=== PATIENT | male | born 1965 | race Caucasian/White ===

== ENCOUNTER 2017-09-30 21:45 | Inpatient (IN) | payer MEDICARE, OTHER ==
[2017-09-30] MEDS ORDERED: Sodium Chloride 0.9% 1,000 ML IV ONE (22:31)
[2017-09-30] MEDS ORDERED: (Novolin R) Insulin Human Regular 100 units/ml vial IV ONE ×2 (22:32→23:36)
--- NOTE | 2017-09-30 22:33 | C.PDOC ---
History Of Present Illness <Tara Kuo - Last Filed: 10/01/17 01:19> <Sasha Rooney - Last Filed: 10/01/17 02:16> Pt is a 51 yo with known hx NIDDM.who states has had increasing thirst,frequent urination and gen wkns for past few days.Pt is legally blind due to diabetic retinopathy.Denies any nausea,vomiting or recent fevers (Tara Kuo) <Tara Kuo - Last Filed: 10/01/17 01:19> <Sasha Rooney - Last Filed: 10/01/17 02:16> Time Seen by Provider: 09/30/17 22:31 Chief Complaint (Nursing): High Blood Sugar Past Medical History - Medical History PMH: Arthritis, Back Problems, Diabetes, Gastritis, HTN Denies: Hepatitis, HIV, Chronic Kidney Disease, Seizures, Sexually Transmitted Disease - Social History Hx Tobacco Use: No Hx Alcohol Use: Yes (stopped drinking alcohol aug 24) Hx Substance Use: No - Immunization History Hx Tetanus Toxoid Vaccination: No Hx Influenza Vaccination: Yes Hx Pneumococcal Vaccination: Yes <Tara Kuo - Last Filed: 10/01/17 01:19> Reviewed: Historical Data, Nursing Documentation, Vital Signs Family History: States: No Known Family Hx <Sasha Rooney - Last Filed: 10/01/17 02:16> Vital Signs: Last Vital Signs Temp 98 F 09/30/17 21:59 Pulse 98 H 09/30/17 21:59 Resp 18 09/30/17 21:59 BP 157/90 H 09/30/17 21:59 Pulse Ox 100 10/01/17 01:20 - [facility] Procedures ALCOHOL DETOXIFICATION (03/26/13) CLOSED ENDOSCOPIC BIOPSY OF LARGE INTESTINE (02/20/14) OTHER GROUP THERAPY (03/26/13) ED Course And Treatment - Laboratory Results Result Diagrams: 09/30/17 22:42 09/30/17 22:42 ECG: Interpreted By Me ECG Rhythm: Sinus Tachycardia ECG Interpretation: Abnormal Interpretation Of ECG: sinus tach,q's in 3,avf.otherwise neg O2 Sat by Pulse Oximetry: 100 <Tara Kuo - Last Filed: 10/01/17 01:19> - Laboratory Results Result Diagrams: 09/30/17 22:42 10/01/17 00:57 Pulse Ox Interpretation: Normal <Sasha Rooney - Last Filed: 10/01/17 02:16> Critical Care Time - Critical Care Note Total Time (in mins): 30 Documented critical care: time excludes all time spent performing seperately billable procedures. <Sasha Rooney - Last Filed: 10/01/17 02:16> Disposition <Tara Kuo - Last Filed: 10/01/17 01:19> Discussed With Dr.: Gopal To Comment: accetped the pt on his service and took over the care at 2:13 AM Doctor Will See Patient In The: ED Counseled Patient/Family Regarding: Studies Performed, Diagnosis - Disposition Disposition Time: 02:13 <Sasha Rooney - Last Filed: 10/01/17 02:16> - Disposition Referrals: Non [facility] Provider, [Primary Care Provider] - Disposition: HOSPITALIZED Condition: FAIR Forms: [facility] (Greenlandic) - Clinical Impression Clinical Impression: Diabetic complication, Hyperglycemia Decision To Admit <Tara Kuo - Last Filed: 10/01/17 01:19> - Pt Status Changed To: Hospital Disposition Of: Observation - . Bed Request Type: Regular Admitting Physician: Gopal To <Sasha Rooney - Last Filed: 10/01/17 02:16> - . Patient Diagnosis: Diabetic complication, Hyperglycemia
[2017-09-30 22:45] LABS: BASO % 0.2 % (0.0-2.0); EOS # 0.8 K/uL (0.0-0.7); EOS % 6.5 % (0.0-4.0); HEMOGLOBIN 12.5 g/dL (12.0-18.0); LYMPH # 1.7 K/uL (1.0-4.3); LYMPH % 13.7 % (20.0-40.0); MEAN CORPUSCULAR HEMOGLOBIN 31.6 pg (27.0-31.0); MEAN CORPUSCULAR HGB CONC 33.9 g/dL (33.0-37.0); MEAN PLATELET VOLUME 9.9 fL (7.2-11.7); MONO # 0.6 K/uL (0.0-0.8); MONO % 4.8 % (0.0-10.0); NEUT # 9.4 K/uL (1.8-7.0); NEUT % 74.8 % (50.0-75.0); NRBC % 0.1 % (0.0-2.0); RBC 3.95 Mil/uL (4.40-5.90); RED CELL DISTRIBUTION WIDTH 13.7 % (11.5-14.5); WHITE BLOOD COUNT 12.6 K/uL (4.8-10.8)
[2017-09-30 22:47] LABS: MEAN CELL VOLUME 93.2 fL (80.0-94.0)
[2017-09-30] MEDS ORDERED: (Novolin R) Insulin Human Regular 100 units/ml vial ONE ×2 (22:49→23:43)
[2017-09-30] MEDS ORDERED: Sodium Chloride 0.9% 1,000 ML ONE (22:50)
[2017-09-30 22:59] LABS: ALB/GLOB RATIO 1.1 (1.0-2.1); ALBUMIN 4.2 g/dL (3.5-5.0); ALT/SGPT 19 U/L (21-72); AST/SGOT 14 U/L (17-59); BLOOD UREA NITROGEN 24 mg/dL (9-20); GFR AFRICAN-AMERICAN > 60; GFR NON-AFRICAN AMERICAN > 60; LIPASE 284 U/L (23-300)
[2017-10-01 00:11] LABS: ABG ALLEN TEST POS; ARTERIAL BLOOD GAS HEMOGLOBIN 11.8 g/dL (11.7-17.4); ARTERIAL BLOOD GAS O2 SAT 98.7 % (95-98); ARTERIAL BLOOD GAS PCO2 33 mm/Hg (35-45); ARTERIAL BLOOD GAS PO2 91 mm/Hg (80-100); ARTERIAL BLOOD GAS TCO2 21.4 mmol/L (22-28)
[2017-10-01] MEDS ORDERED: Insulin Human Regular 100 UNIT in Sodium Chloride 0.9% 99 ML IV SCH (00:45)
[2017-10-01 01:36] LABS: BLOOD UREA NITROGEN 21 mg/dL (9-20); CALCIUM 9.4 mg/dl (8.6-10.4); GFR AFRICAN-AMERICAN > 60; GFR NON-AFRICAN AMERICAN > 60
--- NOTE | 2017-10-01 02:56 | CP.PCM.HP ---
<MarlaPietro R - Last Filed: 10/01/17 03:21> History of Present Illness - History of Present Illness History of Present Illness: CC: "My sugar was in the 600s" HPI: Mr Lee is a 51 year old male with a PMHx of uncontrolled diabetes, diabetic retinopathy with bilateral legal blindness, herniated lumbar disc, HTN, who presents to [facility] [place] [facility] because of 2 days of increased thirst and urinary frequency. He also endorsed dizziness. He denies dysuria, focal defecits , N/V, fever/chills. This is his 4th or 5th admission for elevated sugar/DKA. Yesterday evening he checked his blood glucose and found it to be in the 600s. He stated that he hasn't been eating healthy the past few days and this might have contributed to the high glucose. He lives in [place], [place] and is visiting his brother in . He sees a PMD in [place] (Dr Cárdenas?) and last saw him last week. 1 month ago he was admitted in [facility] for urinary retention. 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; ambulates with cane Present on Admission - Present on Admission Any Indicators Present on Admission: No Review of Systems - Constitutional Constitutional: absent: Chills, Fatigue, Fever, Headache, Lethargy - EENT Eyes: Blind Spots, Blurred Vision Ears: absent: Decreased Hearing Additional comments: legally blind - Cardiovascular Cardiovascular: absent: Chest Pain, Chest Pain at Rest, Diaphoresis, Dyspnea on Exertion, Lightheadedness, Paroxysmal Nocturnal Dyspnea, Rapid Heart Rate, Syncope - Respiratory Respiratory: absent: Cough, Dyspnea, Dyspnea on Exertion, Wheezing, Stridor - Gastrointestinal Gastrointestinal: absent: Abdominal Pain, Bloating, Constipation, Diarrhea - Genitourinary Genitourinary: Urinary Frequency. absent: Dysuria - Neurological Neurological: Dizziness, Weakness Past Patient History - Infectious Disease Hx of Infectious Diseases: None - Past Medical History & Family History Past Medical History?: Yes - Past Social History Smoking Status: Former Smoker - CARDIAC Hx Hypertension: Yes - PULMONARY Hx Respiratory Disorders: No Hx Tuberculosis: No - NEUROLOGICAL Hx Seizures: No - HEENT Hx HEENT Problems: Yes Other/Comment: retinal problem ?Legally Blind for x 5 years no eyeglasses - RENAL Hx Chronic Kidney Disease: No - ENDOCRINE/METABOLIC Hx Endocrine Disorders: Yes Hx Diabetes Mellitus Type 2: Yes Other/Comment: On insulin @ home dc'd insulin 4 yrs ago - HEMATOLOGICAL/ONCOLOGICAL Hx Human Immunodeficiency Virus (HIV): No - INTEGUMENTARY Hx Dermatological Problems: No - MUSCULOSKELETAL/RHEUMATOLOGICAL Hx Arthritis: Yes - GASTROINTESTINAL Hx Gastritis: Yes - GENITOURINARY/GYNECOLOGICAL Hx Sexually Transmitted Disorders: No - PSYCHIATRIC Hx Substance Use: No - SURGICAL HISTORY Hx Surgeries: Yes Other/Comment: HX Hemorrhoidectomy - ANESTHESIA Hx Anesthesia: Yes Hx Anesthesia Reactions: No Hx Malignant Hyperthermia: No Meds Allergies/Adverse Reactions: Allergies Allergy/AdvReac Type Severity Reaction Status Date / Time No Known Allergies Allergy Verified 09/30/17 21:56 Physical Exam - Constitutional Appears: Well, Non-toxic, No Acute Distress - Head Exam Head Exam: ATRAUMATIC, NORMAL INSPECTION - Eye Exam Eye Exam: EOMI Pupil Exam: PERRL Additional comments: Legally blind - can make out shapes and colors up close - ENT Exam ENT Exam: Mucous Membranes Moist - Neck Exam Neck exam: Positive for: Normal Inspection. Negative for: Lymphadenopathy, Tenderness - Respiratory Exam Respiratory Exam: Clear to Auscultation Bilateral, NORMAL BREATHING PATTERN. absent: Accessory Muscle Use, Rales, Rhonchi, Wheezes, Stridor - Cardiovascular Exam Cardiovascular Exam: REGULAR RHYTHM, +S1, +S2. absent: Bradycardia, Tachycardia , JVD, Systolic Murmur - GI/Abdominal Exam GI & Abdominal Exam: Normal Bowel Sounds, Soft. absent: Distended, Firm, Guarding, Rebound, Rigid, Tenderness - Extremities Exam Extremities exam: Positive for: full ROM, normal capillary refill, normal inspection, pedal pulses present. Negative for: pedal edema, tenderness - Back Exam Back exam: NORMAL INSPECTION. absent: CVA tenderness (L), CVA tenderness (R), rash noted - Neurological Exam Neurological exam: Alert, CN II-XII Intact, Oriented x3 - Psychiatric Exam Psychiatric exam: Normal Affect, Normal Mood - Skin Skin Exam: Intact, Normal Color, Warm Results - Vital Signs Recent Vital Signs: Last Vital Signs Temp 97.8 F 10/01/17 02:38 Pulse 98 H 10/01/17 02:38 Resp 16 10/01/17 02:38 BP 151/83 H 10/01/17 02:38 Pulse Ox 97 10/01/17 02:38 - Labs Result Diagrams: 09/30/17 22:42 10/01/17 00:57 Labs: Laboratory Results - last 24 hr 09/30/17 09/30/17 09/30/17 22:42 22:42 23:51 WBC 12.6 H RBC 3.95 L Hgb 12.5 Hct 36.9 MCV 93.2 D MCH 31.6 H MCHC 33.9 RDW 13.7 Plt Count 252 MPV 9.9 Neut % (Auto) 74.8 Lymph % (Auto) 13.7 L [place]upe % (Auto) 4.8 Eos % (Auto) 6.5 H Baso % (Auto) 0.2 Neut # (Auto) 9.4 H Lymph # (Auto) 1.7 [place] # (Auto) 0.6 Eos # (Auto) 0.8 H Baso # (Auto) 0.0 Puncture Site Rr pCO2 33 L pO2 91 HCO3 22.0 ABG pH 7.40 ABG Total CO2 21.4 L ABG O2 Saturation 98.7 H ABG Base Excess -3.7 L ABG Hemoglobin 11.8 ABG Carboxyhemoglobin 1.9 H POC ABG HHb (Measured) 1.3 ABG Methemoglobin 1.5 Drew Test Pos A-a O2 Difference 17.0 Respiratory Index 0.2 Hgb O2 Saturation 95.2 Liter Flow 0 FiO2 21.0 Sodium 124 L Potassium 5.1 Chloride 86 L Carbon Dioxide 19 L Anion Gap 24 H BUN 24 H Creatinine 1.1 Est GFR ( Amer) > 60 Est GFR (Non-Af Amer) > 60 POC Glucose (mg/dL) Random Glucose 829 H* D Calcium 10.0 Total Bilirubin 0.8 AST 14 L ALT 19 L D Alkaline Phosphatase 123 Troponin I < 0.0120 Total Protein 8.0 Albumin 4.2 Globulin 3.8 Albumin/Globulin Ratio 1.1 Lipase 284 Serum Ketones Small 10/01/17 10/01/17 00:40 00:57 WBC RBC Hgb Hct MCV MCH MCHC RDW Plt Count MPV Neut % (Auto) Lymph % (Auto) [place]upe % (Auto) Eos % (Auto) Baso % (Auto) Neut # (Auto) Lymph # (Auto) [place] # (Auto) Eos # (Auto) Baso # (Auto) Puncture Site pCO2 pO2 HCO3 ABG pH ABG Total CO2 ABG O2 Saturation ABG Base Excess ABG Hemoglobin ABG Carboxyhemoglobin POC ABG HHb (Measured) ABG Methemoglobin Drew Test A-a O2 Difference Respiratory Index Hgb O2 Saturation Liter Flow FiO2 Sodium 131 L Potassium 3.9 Chloride 96 L Carbon Dioxide 20 L Anion Gap 19 BUN 21 H Creatinine 0.9 Est GFR ( Amer) > 60 Est GFR (Non-Af Amer) > 60 POC Glucose (mg/dL) 343 H Random Glucose 353 H Calcium 9.4 Total Bilirubin AST ALT Alkaline Phosphatase Troponin I Total Protein Albumin Globulin Albumin/Globulin Ratio Lipase Serum Ketones Assessment & Plan (1) Uncontrolled diabetes mellitus Assessment and Plan: On admission glucose 829 * metabolic acidosis corrected quickly and no serum ketones - thus NOT DKA In ED given Novolin 10u x2 and NS 1L bolus * glucose improved to 353 [facility] Intern consult, Dr Essie Duffy * Patient's DM home med includes only metformin 500mg PO QD EKG read by ER physician showed Q-waves in V3 and AVF otherwise NEGATIVE Diabetic Diet Cont home med Metformin 500mg PO QD NS @ 125cc/hr Accuchecks ACHS Insulin sliding scale - medium dose Hypoglycemia protocol Diabetic Education F/U HgbA1C Status: Acute (2) Hypertension Assessment and Plan: BP elevated Cont home med Metoprolol Succinate 50mg PO QD Monitor Status: Acute (3) Diabetic retinopathy Assessment and Plan: Patient with homemaker at home Cont home med metformin 500mg PO QD Status: Acute (4) Prophylactic measure Assessment and Plan: SCDs, Heparin 5000u SC Q8 Protonix 40mg PO QD Diabetic Diet Status: Acute <Gopal To - Last Filed: 10/01/17 06:25> Results - Vital Signs Recent Vital Signs: Last Vital Signs Temp 97.7 F 10/01/17 03:10 Pulse 100 H 10/01/17 03:10 Resp 20 10/01/17 03:10 BP 122/83 10/01/17 03:10 Pulse Ox 98 10/01/17 03:10 - Labs Result Diagrams: 09/30/17 22:42 10/01/17 00:57 Labs: Laboratory Results - last 24 hr 09/30/17 09/30/17 09/30/17 22:42 22:42 23:51 WBC 12.6 H RBC 3.95 L Hgb 12.5 Hct 36.9 MCV 93.2 D MCH 31.6 H MCHC 33.9 RDW 13.7 Plt Count 252 MPV 9.9 Neut % (Auto) 74.8 Lymph % (Auto) 13.7 L [place] % (Auto) 4.8 Eos % (Auto) 6.5 H Baso % (Auto) 0.2 Neut # (Auto) 9.4 H Lymph # (Auto) 1.7 [place] # (Auto) 0.6 Eos # (Auto) 0.8 H Baso # (Auto) 0.0 Puncture Site Rr pCO2 33 L pO2 91 HCO3 22.0 ABG pH 7.40 ABG Total CO2 21.4 L ABG O2 Saturation 98.7 H ABG Base Excess -3.7 L ABG Hemoglobin 11.8 ABG Carboxyhemoglobin 1.9 H POC ABG HHb (Measured) 1.3 ABG Methemoglobin 1.5 Drew Test Pos A-a O2 Difference 17.0 Respiratory Index 0.2 Hgb O2 Saturation 95.2 Liter Flow 0 FiO2 21.0 Sodium 124 L Potassium 5.1 Chloride 86 L Carbon Dioxide 19 L Anion Gap 24 H BUN 24 H Creatinine 1.1 Est GFR ( Amer) > 60 Est GFR (Non-Af Amer) > 60 POC Glucose (mg/dL) Random Glucose 829 H* D Calcium 10.0 Total Bilirubin 0.8 AST 14 L ALT 19 L D Alkaline Phosphatase 123 Troponin I < 0.0120 Total Protein 8.0 Albumin 4.2 Globulin 3.8 Albumin/Globulin Ratio 1.1 Lipase 284 Serum Ketones Small 10/01/17 10/01/17 10/01/17 00:40 00:57 05:36 WBC RBC Hgb Hct MCV MCH MCHC RDW Plt Count MPV Neut % (Auto) Lymph % (Auto) [place]upe % (Auto) Eos % (Auto) Baso % (Auto) Neut # (Auto) Lymph # (Auto) [place] # (Auto) Eos # (Auto) Baso # (Auto) Puncture Site pCO2 pO2 HCO3 ABG pH ABG Total CO2 ABG O2 Saturation ABG Base Excess ABG Hemoglobin ABG Carboxyhemoglobin POC ABG HHb (Measured) ABG Methemoglobin Drew Test A-a O2 Difference Respiratory Index Hgb O2 Saturation Liter Flow FiO2 Sodium 131 L Potassium 3.9 Chloride 96 L Carbon Dioxide 20 L Anion Gap 19 BUN 21 H Creatinine 0.9 Est GFR ( Amer) > 60 Est GFR (Non-Af Amer) > 60 POC Glucose (mg/dL) 343 H 394 H Random Glucose 353 H Calcium 9.4 Total Bilirubin AST ALT Alkaline Phosphatase Troponin I Total Protein Albumin Globulin Albumin/Globulin Ratio Lipase Serum Ketones Assessment & Plan - Date & Time Date: 10/01/17 (I have seen and examined the patient. I agree with the findings and plan of care as documented by Dr. Gutiérrez. Patient with uncontrolled diabetes. IVF. NISS. Accuchecks. Continue home meds. Consult to head of physics. Continue home meds for history of hypertension. Monitor for acute changes.) Time: 06:23 Attending/Attestation - Attestation I have personally seen and examined this patient.: Yes I have fully participated in the care of the patient.: Yes I have reviewed all pertinent clinical information: Yes
[2017-10-01] MEDS ORDERED: Sodium Chloride 0.9% 1,000 ML IV SCH (03:15)
[2017-10-01] MEDS ORDERED: Dextrose 50% SYRINGE Inj (50 ml) IV PRN (03:36)
[2017-10-01] MEDS ORDERED: Glucagon Recombinant 1 mg Inj IM PRN (03:36)
[2017-10-01 05:53] VITALS: RESP 20
[2017-10-01 07:53] LABS: BASO % 0.4 % (0.0-2.0); EOS # 1.4 K/uL (0.0-0.7); EOS % 12.3 % (0.0-4.0); HEMOGLOBIN 11.6 g/dL (12.0-18.0); LYMPH # 2.5 K/uL (1.0-4.3); LYMPH % 22.5 % (20.0-40.0); MEAN CORPUSCULAR HEMOGLOBIN 31.4 pg (27.0-31.0); MEAN CORPUSCULAR HGB CONC 34.6 g/dL (33.0-37.0); MEAN PLATELET VOLUME 10.1 fL (7.2-11.7); MONO # 0.5 K/uL (0.0-0.8); MONO % 4.8 % (0.0-10.0); NEUT # 6.8 K/uL (1.8-7.0); NRBC % 0.1 % (0.0-2.0); RBC 3.7 Mil/uL (4.40-5.90); RED CELL DISTRIBUTION WIDTH 13.3 % (11.5-14.5); WHITE BLOOD COUNT 11.3 K/uL (4.8-10.8)
[2017-10-01 08:04] LABS: MEAN CELL VOLUME 90.9 fL (80.0-94.0)
[2017-10-01 08:14] LABS: ALB/GLOB RATIO 1.1 (1.0-2.1); ALBUMIN 3.6 g/dL (3.5-5.0); ALT/SGPT 26 U/L (21-72); AST/SGOT 15 U/L (17-59); BLOOD UREA NITROGEN 18 mg/dL (9-20); GFR AFRICAN-AMERICAN > 60; GFR NON-AFRICAN AMERICAN > 60
[2017-10-01] MEDS: (Novolin R) Insulin Human Regular 100 units/ml vial SC SCH ×2 (08:30→13:20)
[2017-10-01] MEDS: Pantoprazole 40 mg EC Tab PO SCH (09:17)
[2017-10-01] MEDS: Metoprolol Succinate 50 mg XL Tab PO SCH (09:17)
[2017-10-01] MEDS ORDERED: (Novolin R) Insulin Human Regular 100 units/ml vial SC SCH (14:01)
--- NOTE | 2017-10-01 14:09 | CP.PCM.PN ---
<Ranjith Meadows E - Last Filed: 10/01/17 18:01> Subjective - Date & Time of Evaluation Date of Evaluation: 10/01/17 Time of Evaluation: 07:10 - Subjective Subjective: Medicine progress note ( Dr. Sultana's service) Patient was seen and examined at bedside. Patient reports that he is doing well with improving symptoms. Patient denies chest pain, SOB, palpitations, nausea, vomiting, abdominal pain. During the encounter, patient reports that he does not check is blood glucose daily and does not have the best diet in order to control his blood glucose. Objective - Vital Signs/Intake and Output Vital Signs (last 24 hours): Temp Pulse Resp BP Pulse Ox 97.7 F 98 H 20 143/83 98 10/01/17 07:36 10/01/17 07:36 10/01/17 07:36 10/01/17 07:36 10/01/17 07:36 - Medications Medications: Current Medications Dextrose (Dextrose 50% Inj) 0 ml IV STAT PRN; Protocol PRN Reason: Hypoglycemia Protocol Dextrose (Glutose 15) 0 gm PO ONCE PRN; Protocol PRN Reason: Hypoglycemia Protocol Enoxaparin Sodium (Lovenox) 30 mg SC DAILY [facility] Glucagon (Glucagen Diagnostic Kit) 0 mg IM STAT PRN; Protocol PRN Reason: Hypoglycemia Protocol Sodium Chloride (Sodium Chloride 0.9%) 1,000 mls @ 125 mls/hr IV .Q8H [facility] Last Admin: 10/01/17 03:30 Dose: 125 mls/hr Dextrose (Dextrose 5% In Water 1000 Ml) 1,000 mls @ 0 mls/hr IV .Q0M PRN; Protocol; Per Protocol PRN Reason: Hypoglycemia Protocol Insulin Glargine (Lantus) 10 unit SC HS [facility] Insulin Human Regular (Novolin R) 0 unit SC ACHS [facility] PRN Reason: Protocol Lisinopril (Zestril) 2.5 mg PO DAILY [facility] Metformin HCl (Glucophage Xr) 500 mg PO DAILY [facility] Last Admin: 10/01/17 09:17 Dose: 500 mg Metoprolol Succinate (Toprol Xl) 50 mg PO DAILY [facility] Last Admin: 10/01/17 09:17 Dose: 50 mg Pantoprazole Sodium (Protonix Ec Tab) 40 mg PO DAILY [facility] Last Admin: 10/01/17 09:17 Dose: 40 mg Rosuvastatin Calcium (Crestor) 5 mg PO HS KRISTEN - Labs Labs: 10/01/17 07:40 10/01/17 07:40 - Constitutional Appears: Well, No Acute Distress - Head Exam Head Exam: ATRAUMATIC, NORMAL INSPECTION - Eye Exam Eye Exam: EOMI, Normal appearance Additional comments: Patient is legally blind - ENT Exam ENT Exam: Mucous Membranes Moist - Respiratory Exam Respiratory Exam: Clear to Ausculation Bilateral, NORMAL BREATHING PATTERN. absent: Rhonchi, Wheezes, Respiratory Distress - Cardiovascular Exam Cardiovascular Exam: REGULAR RHYTHM, +S1, +S2, +S4. absent: Murmur - GI/Abdominal Exam GI & Abdominal Exam: Soft, Normal Bowel Sounds. absent: Firm, Guarding, Rigid, Tenderness - Extremities Exam Extremities Exam: Normal Inspection. absent: Calf Tenderness, Pedal Edema - Neurological Exam Neurological Exam: Alert, Awake, Oriented x3 - Psychiatric Exam Psychiatric exam: Normal Affect - Skin Skin Exam: Normal Color Assessment and Plan (1) Uncontrolled diabetes mellitus Assessment & Plan: Endocrinology consult, Dr. Duffy----> Help appreciated hematology nurse educator HgbA1C: 10.3 (10/01/17) Medications/Management: * Accuchecks * ISS- High dose * Lantus 10 units HS * Metformin 500mg PO daily * Lisinopril 2.5 mg PO daily: Renal protective * Crestor 5mg PO HS (due to cardiovascular risk) * Hypoglycemia protocol Status: Acute (2) Leukocytosis Assessment & Plan: Afebrile and no bandemia On admission: 12.6 * Trending down * f/u procalcitionin * NS @ 100mls/hr * Continue to monitor Status: Acute (3) Hypertension Assessment & Plan: Continue home medications: * Metoprolol Succinate 50mg PO QD * Continue to monitor with Vital signs Q4H Status: Acute (4) Prophylactic measure Assessment & Plan: GI: Protonix 40mg PO daily DVT: Lovenox 30mg SC daily All plans and management as per Dr. Sultana Status: Acute <Erik Sultana - Last Filed: 10/02/17 07:23> Objective - Vital Signs/Intake and Output Vital Signs (last 24 hours): Temp Pulse Resp BP Pulse Ox 97.9 F 88 20 127/73 97 10/02/17 00:00 10/02/17 00:00 10/02/17 00:00 10/02/17 00:00 10/02/17 04:25 Intake and Output: 10/02/17 10/02/17 06:59 18:59 Intake Total 2200 Balance 2200 - Medications Medications: Current Medications Dextrose (Dextrose 50% Inj) 0 ml IV STAT PRN; Protocol PRN Reason: Hypoglycemia Protocol Dextrose (Glutose 15) 0 gm PO ONCE PRN; Protocol PRN Reason: Hypoglycemia Protocol Enoxaparin Sodium (Lovenox) 30 mg SC DAILY [facility] Glucagon (Glucagen Diagnostic Kit) 0 mg IM STAT PRN; Protocol PRN Reason: Hypoglycemia Protocol Dextrose (Dextrose 5% In Water 1000 Ml) 1,000 mls @ 0 mls/hr IV .Q0M PRN; Protocol; Per Protocol PRN Reason: Hypoglycemia Protocol Sodium Chloride (Sodium Chloride 0.9%) 1,000 mls @ 100 mls/hr IV .Q10H [facility] Last Admin: 10/02/17 04:10 Dose: 100 mls/hr Insulin Aspart (Novolog) 10 unit SC AC [facility] Last Admin: 10/01/17 17:10 Dose: 10 unit Insulin Aspart (Novolog) 0 unit SC ACHS [facility] PRN Reason: Protocol Last Admin: 10/01/17 21:48 Dose: Not Given Insulin Glargine (Lantus) 24 unit SC HS [facility] Last Admin: 10/01/17 21:51 Dose: 24 unit Lisinopril (Zestril) 2.5 mg PO DAILY [facility] Metformin HCl (Glucophage Xr) 500 mg PO DAILY [facility] Last Admin: 10/01/17 09:17 Dose: 500 mg Metoprolol Succinate (Toprol Xl) 50 mg PO DAILY [facility] Last Admin: 10/01/17 09:17 Dose: 50 mg Pantoprazole Sodium (Protonix Ec Tab) 40 mg PO DAILY [facility] Last Admin: 10/01/17 09:17 Dose: 40 mg Rosuvastatin Calcium (Crestor) 5 mg PO [facility] Last Admin: 10/01/17 21:47 Dose: 5 mg - Labs Labs: 10/02/17 06:51 10/02/17 06:51 Attending/Attestation - Attestation I have personally seen and examined this patient.: Yes I have fully participated in the care of the patient.: Yes I have reviewed all pertinent clinical information, including history, physical exam and plan: Yes Notes (Text): 10/02/17 07:23 Medical attending: Patient was seen and examined by me, we saw the patient together with senior medical writer. Agree with the above note by senior medical writer. The patient was not in any acute distress when we saw him. It appears he has had diabetes for quite some time now, he has a lot of difficulty seeing for the past 2 or 3 years. He explains to me that he could only see about a few feet in front of him and that I appear blurry to him His blood sugars when he came in were very high >500 at times. Since then they' ve come down however they still remain somewhat on the high side. Endocrinology has started the patient on Lantus 24 units at night as well as 10 units with meals. He remains on sliding scale insulin as well as metformin Hopefully reviewed his sugars down to the 200 range we'll consider discharging him. In the meantime he remains on intravenous fluids as well as JORDON inhibitor, statin, beta noemi. Thank you very much, Erik Sultana
[2017-10-01] MEDS: (Novolog) Insulin Aspart, Recombinant 100 u/ml 10 ml vial SC SCH ×3 (17:10→21:48)
[2017-10-01] MEDS: Sodium Chloride 0.9% 1,000 ML IV SCH ×2 (18:55→21:56)
[2017-10-01] MEDS ORDERED: (Lantus) Insulin Glargine, Recombinant SC SCH ×2 (22:00)
--- NOTE | 2017-10-01 22:55 | CARD ---
APPROVED REPORT EKG Measurement Heart [id number] HI [id number] <Conclusion> Sinus tachycardia Possible Inferior infarct, age undetermined Abnormal ECG
[2017-10-02] MEDS: Sodium Chloride 0.9% 1,000 ML IV SCH ×3 (04:10→19:35)
[2017-10-02 07:15] LABS: BASO % 0.5 % (0.0-2.0); EOS # 1.1 K/uL (0.0-0.7); EOS % 16.2 % (0.0-4.0); HEMOGLOBIN 11.2 g/dL (12.0-18.0); LYMPH # 2.1 K/uL (1.0-4.3); LYMPH % 29.1 % (20.0-40.0); MEAN CORPUSCULAR HEMOGLOBIN 31.9 pg (27.0-31.0); MEAN PLATELET VOLUME 10.4 fL (7.2-11.7); MONO # 0.4 K/uL (0.0-0.8); MONO % 5.7 % (0.0-10.0); NEUT # 3.4 K/uL (1.8-7.0); NEUT % 48.5 % (50.0-75.0); NRBC % 0.1 % (0.0-2.0); RBC 3.51 Mil/uL (4.40-5.90); RED CELL DISTRIBUTION WIDTH 13.2 % (11.5-14.5); WHITE BLOOD COUNT 7.1 K/uL (4.8-10.8)
[2017-10-02 07:20] LABS: ALB/GLOB RATIO 1.1 (1.0-2.1); ALBUMIN 3.2 g/dL (3.5-5.0); ALT/SGPT 17 U/L (21-72); AST/SGOT 13 U/L (17-59); BLOOD UREA NITROGEN 14 mg/dL (9-20); GFR AFRICAN-AMERICAN > 60; GFR NON-AFRICAN AMERICAN > 60
[2017-10-02] MEDS: (Novolog) Insulin Aspart, Recombinant 100 u/ml 10 ml vial SC SCH ×6 (08:26→21:18)
[2017-10-02] MEDS: Pantoprazole 40 mg EC Tab PO SCH (10:00)
[2017-10-02] MEDS: Enoxaparin 30 mg Syringe SC SCH (10:01)
[2017-10-02] MEDS: Metoprolol Succinate 50 mg XL Tab PO SCH (10:01)
--- NOTE | 2017-10-02 10:36 | CON ---
DATE: ENDOCRINOLOGY CONSULT LOCATION: In room 370. HISTORY OF PRESENT ILLNESS: This is a 51-year-old male with known history of type 2 diabetes, clinically on oral hypoglycemic therapy, presenting here with marked hyperglycemic accelerations and is being referred now for diabetic evaluation and management. He admits to having developed increasing bouts of dizziness and lightheadedness, worse on the day of the admission with concomitant marked polyuria, nocturia, and polydipsia with generalized body weakness and is now being referred for diabetic evaluation and management. PAST MEDICAL HISTORY: As mentioned above, history of type 2 diabetes, currently only using metformin at 500 mg once daily; history of hypertensive cardiovascular disease and dyslipidemia; history of diabetic retinopathy and is currently legally blind; history of diabetic polyneuropathy with severe lower extremity paraesthesia; history of peripheral arterial disease and vasculopathy; history of lumbar disk disease with chronic lower back pain and currently ambulates with a cane as noted. SOCIAL HISTORY: The patient has a supportive family. No recent substance use, although, admits to occasional marijuana use and quit heavy alcohol intake about a month ago with longstanding history of chronic alcoholism. FAMILY HISTORY: Strongly positive for diabetes in both maternal and paternal sides of the family. REVIEW OF SYSTEMS: Admits to generalized body weakness with increasing hypersomnolence and lethargy, also admits to progressive bouts of dizziness and lightheadedness, worse on the day of admission. No recent chest pain, palpitations or PND, but admits to progressive shortness of breath especially on exertion. His oral intake has been variable with nausea, dyspepsia, and anorexia, worse in the last week also prior to admission with supervening marked polyuria, nocturia, and polydipsia with episodic bouts of constipation. Also admits to intermittent lower back pain with radicular pain down to his lower extremities. Also admits to painful paresthesias, especially nocturnally. PHYSICAL EXAMINATION: GENERAL: He is an average-built male, in no apparent distress. VITAL SIGNS: Blood pressure of 140/80, pulse of 80 beats per minute and regular, temperature 98, respirations 20, height is 5 feet 6 inches, and weight is 180 pounds. HEENT: Head is normocephalic. Eyes, anicteric with pink conjunctivae. Funduscopy is not possible at this time. Ears, nose, and throat otherwise normal. NECK: Supple. Thyroid gland is normal in size. No carotid bruits or cervical adenopathy. CARDIOPULMONARY: Some adynamic precordium. S1 and S2 is rapid and regular. LUNGS: Clear to auscultation. ABDOMEN: Flat, soft with positive bowel sounds. EXTREMITIES: No peripheral edema, pulses are +2 bilaterally. LABORATORY DATA: Initial chemistry showed a BUN of 24, sodium 124, potassium 5.1, chloride 86, CO2 of 19, glucose 829 mg/dL, and creatinine 1.1. His hemoglobin A1c is 10.3% which is extremely elevated and indicative of suboptimal metabolic control with his diabetic condition even prior to this admission. His glucose values today have ranged from 287 to 375 and 442 mg/dL. ASSESSMENT: This is a 51-year-old male with uncontrolled and decompensated type 2 insulin-requiring diabetes, presenting here with hyperosmolar hyperglycemic state with mild ketosis and clinical and biochemical evidence of dehydration and prerenal azotemia with spurious hyponatremia. There is a very strong history of poor adherence to his oral hypoglycemic drug therapy as noted. 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 There is also significant history of diabetic microvascular complications of retinopathy and painful polyneuropathy with macrovascular complications of peripheral arterial disease and vasculopathy. PLAN OF MANAGEMENT: As discussed with the patient and the staff, we will modify his current insulin regimen to a more physiologic basal and bolus insulin drug combination with the initiation of Lantus given at the higher dose of 24 units subcu at bedtime daily to start tonight. We will also add NovoLog for prandial insulin requirements at the dose of 10 units subcu t.i.d. before meals to start at dinner time today as ordered. We will modify the coverage scale to obviate hypoglycemia and details orders have been given. We will titrate incrementally as indicated to optimize metabolic control. We will initiate diabetic education to include insulin self-administration as ordered. We will also initiate nutritional counseling for healthier food choices as ordered. We will also continue the IV hydration to fully replenish his lost fluids and electrolytes especially with the increased osmotic diuresis as noted thereof. We will follow with you. Essie Duffy MD
[2017-10-02] MEDS ORDERED: (Novolog) Insulin Aspart, Recombinant 100 u/ml 10 ml vial SC SCH (11:30)
--- NOTE | 2017-10-02 13:06 | PN ---
DATE: 10/02/2017. ENDOCRINOLOGY FOLLOWUP NOTE LOCATION: Room 370. SUBJECTIVE: This is a 51-year-old male with recent uncontrolled type 2 insulin requiring diabetes, presenting here with hyperosmolar hyperglycemic state and mild ketosis and concomitant dehydration with spurious hyponatremia, and since then improved clinically and metabolically, although has persistent glycemic fluctuations as noted overnight. His glucose levels have ranged from 287 to 381 mg/dL. His latest chemistry showed a BUN of 14, sodium 133, potassium 4.2, chloride 101, CO2 18, glucose 433 and creatinine 0.9. PLAN: So at this time, we will titrate once again his IV fluids as he is clearly still dehydrated, although has improved renal indices as noted thereof. We will also titrate his basal and bolus insulin regimen and increase the NovoLog to 14 units subcu t.i.d. before meals to start at lunch time today as ordered. We will also titrate basal insulin with Lantus to be given at a much higher dose of 34 units subcu at bedtime daily to start tonight. We will continue the low dose correction scale using NovoLog insulin as given. We will obtain serial chemistries and supplement accordingly as needed. We will follow. Essie Duffy MD
--- NOTE | 2017-10-02 14:02 | CP.PCM.PN ---
<MullikenMadeleine randolphevita E - Last Filed: 10/02/17 14:16> Subjective - Date & Time of Evaluation Date of Evaluation: 10/02/17 Time of Evaluation: 06:35 - Subjective Subjective: Medicine progress note ( Dr. Sultana's service) Patient was seen and examined at bedside. Patient reports that he is doing well and has no complaints. Patient denies chest pain, SOB, nausea, vomiting, palpitations, fever, chills, but still admits to polydipsia. Objective - Vital Signs/Intake and Output Vital Signs (last 24 hours): Temp Pulse Resp BP Pulse Ox 98.0 F 84 20 129/82 96 10/02/17 08:00 10/02/17 08:00 10/02/17 08:00 10/02/17 08:00 10/02/17 08:00 Intake and Output: 10/02/17 10/02/17 06:59 18:59 Intake Total 2200 Output Total 300 Balance 1900 - Medications Medications: Current Medications Dextrose (Dextrose 50% Inj) 0 ml IV STAT PRN; Protocol PRN Reason: Hypoglycemia Protocol Dextrose (Glutose 15) 0 gm PO ONCE PRN; Protocol PRN Reason: Hypoglycemia Protocol Enoxaparin Sodium (Lovenox) 30 mg SC DAILY [facility] Last Admin: 10/02/17 10:01 Dose: 30 mg Glucagon (Glucagen Diagnostic Kit) 0 mg IM STAT PRN; Protocol PRN Reason: Hypoglycemia Protocol Dextrose (Dextrose 5% In Water 1000 Ml) 1,000 mls @ 0 mls/hr IV .Q0M PRN; Protocol; Per Protocol PRN Reason: Hypoglycemia Protocol Sodium Chloride (Sodium Chloride 0.9%) 1,000 mls @ 100 mls/hr IV .Q10H [facility] Last Admin: 10/02/17 04:10 Dose: 100 mls/hr Sodium Chloride (Sodium Chloride 0.9%) 1,000 mls @ 150 mls/hr IV .Q6H40M [facility] Insulin Aspart (Novolog) 0 unit SC ACHS [facility] PRN Reason: Protocol Last Admin: 10/02/17 12:56 Dose: 4 unit Insulin Aspart (Novolog) 14 unit SC AC [facility] Last Admin: 10/02/17 12:56 Dose: 14 unit Insulin Glargine (Lantus) 34 unit SC HS [facility] Lisinopril (Zestril) 2.5 mg PO DAILY [facility] Last Admin: 10/02/17 10:01 Dose: 2.5 mg Metformin HCl (Glucophage Xr) 500 mg PO DAILY [facility] Last Admin: 10/02/17 10:01 Dose: 500 mg Metoprolol Succinate (Toprol Xl) 50 mg PO DAILY [facility] Last Admin: 10/02/17 10:01 Dose: 50 mg Pantoprazole Sodium (Protonix Ec Tab) 40 mg PO DAILY [facility] Last Admin: 10/02/17 10:00 Dose: 40 mg Rosuvastatin Calcium (Crestor) 5 mg PO HS [facility] Last Admin: 10/01/17 21:47 Dose: 5 mg - Labs Labs: 10/02/17 06:51 10/02/17 06:51 - Constitutional Appears: Well, No Acute Distress - Head Exam Head Exam: ATRAUMATIC, NORMAL INSPECTION - Eye Exam Eye Exam: EOMI, Normal appearance - ENT Exam ENT Exam: Mucous Membranes Moist - Respiratory Exam Respiratory Exam: Clear to Ausculation Bilateral, NORMAL BREATHING PATTERN. absent: Rhonchi, Wheezes, Respiratory Distress - Cardiovascular Exam Cardiovascular Exam: REGULAR RHYTHM, +S1, +S2 - GI/Abdominal Exam GI & Abdominal Exam: Soft, Normal Bowel Sounds. absent: Guarding, Rigid, Tenderness - Extremities Exam Extremities Exam: Normal Inspection. absent: Calf Tenderness, Tenderness - Neurological Exam Neurological Exam: Alert, Awake, Oriented x3 - Psychiatric Exam Psychiatric exam: Normal Affect, Normal Mood Assessment and Plan (1) Uncontrolled diabetes mellitus Assessment & Plan: Endocrinology consult, Dr. 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 Duffy's recommendation * Added Novolog 14 units SC AC (10/02/17); as per Dr. Duffy's recommendation \ * NS @ 150mls/hr * Metformin 500mg PO daily * Lisinopril 2.5 mg PO daily: Renal protective * Crestor 5mg PO HS (due to cardiovascular risk) * Hypoglycemia protocol Goal: To attain a regimen for blood glucose control Status: Acute (2) Leukocytosis Assessment & Plan: Resolved Afebrile and no bandemia On admission: 12.6 * Normalized * Continue to monitor Status: Acute (3) Hypertension Assessment & Plan: Continue home medications: * Metoprolol Succinate 50mg PO QD * Continue to monitor with Vital signs Q4H Status: Acute (4) Prophylactic measure Assessment & Plan: GI: Protonix 40mg PO daily DVT: Lovenox 30mg SC daily All plans and management as per Dr. Sultana Status: Acute <Erik Sultana H - Last Filed: 10/02/17 14:40> Objective - Vital Signs/Intake and Output Vital Signs (last 24 hours): Temp Pulse Resp BP Pulse Ox 98.0 F 84 20 129/82 96 10/02/17 08:00 10/02/17 08:00 10/02/17 08:00 10/02/17 08:00 10/02/17 08:00 Intake and Output: 10/02/17 10/02/17 06:59 18:59 Intake Total 2200 Output Total 300 Balance 1900 - Medications Medications: Current Medications Dextrose (Dextrose 50% Inj) 0 ml IV STAT PRN; Protocol PRN Reason: Hypoglycemia Protocol Dextrose (Glutose 15) 0 gm PO ONCE PRN; Protocol PRN Reason: Hypoglycemia Protocol Enoxaparin Sodium (Lovenox) 30 mg SC DAILY [facility] Last Admin: 10/02/17 10:01 Dose: 30 mg Glucagon (Glucagen Diagnostic Kit) 0 mg IM STAT PRN; Protocol PRN Reason: Hypoglycemia Protocol Dextrose (Dextrose 5% In Water 1000 Ml) 1,000 mls @ 0 mls/hr IV .Q0M PRN; Protocol; Per Protocol PRN Reason: Hypoglycemia Protocol Sodium Chloride (Sodium Chloride 0.9%) 1,000 mls @ 150 mls/hr IV .Q6H40M [facility] Insulin Aspart (Novolog) 0 unit SC ACHS [facility] PRN Reason: Protocol Last Admin: 10/02/17 12:56 Dose: 4 unit Insulin Aspart (Novolog) 18 unit SC AC [facility] Insulin Glargine (Lantus) 34 unit SC HS [facility] Lisinopril (Zestril) 2.5 mg PO DAILY [facility] Last Admin: 10/02/17 10:01 Dose: 2.5 mg Metformin HCl (Glucophage Xr) 500 mg PO DAILY [facility] Last Admin: 10/02/17 10:01 Dose: 500 mg Metoprolol Succinate (Toprol Xl) 50 mg PO DAILY [facility] Last Admin: 10/02/17 10:01 Dose: 50 mg Pantoprazole Sodium (Protonix Ec Tab) 40 mg PO DAILY [facility] Last Admin: 10/02/17 10:00 Dose: 40 mg Rosuvastatin Calcium (Crestor) 5 mg PO HS [facility] Last Admin: 10/01/17 21:47 Dose: 5 mg - Labs Labs: 10/02/17 06:51 10/02/17 06:51 Attending/Attestation - Attestation I have personally seen and examined this patient.: Yes I have fully participated in the care of the patient.: Yes I have reviewed all pertinent clinical information, including history, physical exam and plan: Yes Notes (Text): 10/02/17 14:40 Medical attending: Patient was seen and examined by me as well. Agree with the above note by the resident. The patient was not in any acute distress when we saw him The patient had his insulin modified by endocrinology last night to higer doses. Today we will continue to monitor the patient's accucheks. I explained to the patient that his sugars are still higher - if the number improve tommorow then we will consider discharging the patient the next day. 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 thank you Erik Sultana
[2017-10-02] MEDS ORDERED: (Lantus) Insulin Glargine, Recombinant SC SCH (22:00)
[2017-10-03] MEDS: Sodium Chloride 0.9% 1,000 ML IV SCH ×3 (03:25→22:06)
[2017-10-03 07:07] LABS: BASO # 0.1 K/uL (0.0-0.2); BASO % 0.9 % (0.0-2.0); EOS # 1.3 K/uL (0.0-0.7); EOS % 14.8 % (0.0-4.0); LYMPH # 2.3 K/uL (1.0-4.3); LYMPH % 25.2 % (20.0-40.0); MEAN CELL VOLUME 91.2 fL (80.0-94.0); MEAN CORPUSCULAR HEMOGLOBIN 31.8 pg (27.0-31.0); MEAN CORPUSCULAR HGB CONC 34.9 g/dL (33.0-37.0); MEAN PLATELET VOLUME 10.9 fL (7.2-11.7); MONO # 0.5 K/uL (0.0-0.8); MONO % 5.1 % (0.0-10.0); NEUT # 4.8 K/uL (1.8-7.0); NRBC % 0.1 % (0.0-2.0); RBC 3.47 Mil/uL (4.40-5.90); RED CELL DISTRIBUTION WIDTH 13.3 % (11.5-14.5)
[2017-10-03 08:08] LABS: ALT/SGPT 17 U/L (21-72); AST/SGOT 15 U/L (17-59); BLOOD UREA NITROGEN 15 mg/dL (9-20); CALCIUM 8.8 mg/dl (8.6-10.4); GFR AFRICAN-AMERICAN > 60; GFR NON-AFRICAN AMERICAN > 60; HDL CHOLESTEROL 22 mg/dL (30-70)
[2017-10-03 08:19] LABS: LDL CHOLESTEROL 94 mg/dL (0-129)
[2017-10-03] MEDS: (Novolog) Insulin Aspart, Recombinant 100 u/ml 10 ml vial SC SCH ×7 (08:52→21:42)
[2017-10-03] MEDS: Pantoprazole 40 mg EC Tab PO SCH (09:44)
[2017-10-03] MEDS: Enoxaparin 30 mg Syringe SC SCH (09:44)
--- NOTE | 2017-10-03 14:35 | RAD ---
HISTORY: shortness of breath COMPARISON: Chest radiograph dated 02/19/2014. FINDINGS: LUNGS: No active pulmonary disease. PLEURA: No significant pleural effusion identified, no pneumothorax apparent. CARDIOVASCULAR: Atherosclerotic aortic calcifications. Cardiomediastinal silhouette unchanged. OSSEOUS STRUCTURES: Unchanged. VISUALIZED UPPER ABDOMEN: Normal. OTHER FINDINGS: None. IMPRESSION: No active disease.
--- NOTE | 2017-10-03 16:31 | CP.PCM.PN ---
<Ranjith Meadows E - Last Filed: 10/03/17 16:38> Subjective - Date & Time of Evaluation Date of Evaluation: 10/03/17 Time of Evaluation: 07:45 - Subjective Subjective: Medicine progress note ( Dr. Sultana's service) Patient was seen and examined at bedside. Patient reports that he is doing well. Patient denies nausea, vomiting, chest pain, palpitations, abdominal pain but admits to SOB. Objective - Vital Signs/Intake and Output Vital Signs (last 24 hours): Temp Pulse Resp BP Pulse Ox 98.1 F 93 H 20 145/88 96 10/03/17 08:19 10/03/17 08:19 10/03/17 08:19 10/03/17 08:19 10/03/17 08:19 Intake and Output: 10/03/17 10/03/17 06:59 18:59 Intake Total 1300 Balance 1300 - Medications Medications: Current Medications Dextrose (Dextrose 50% Inj) 0 ml IV STAT PRN; Protocol PRN Reason: Hypoglycemia Protocol Dextrose (Glutose 15) 0 gm PO ONCE PRN; Protocol PRN Reason: Hypoglycemia Protocol Enoxaparin Sodium (Lovenox) 30 mg SC DAILY [facility] Last Admin: 10/03/17 09:44 Dose: 30 mg Glucagon (Glucagen Diagnostic Kit) 0 mg IM STAT PRN; Protocol PRN Reason: Hypoglycemia Protocol Dextrose (Dextrose 5% In Water 1000 Ml) 1,000 mls @ 0 mls/hr IV .Q0M PRN; Protocol; Per Protocol PRN Reason: Hypoglycemia Protocol Sodium Chloride (Sodium Chloride 0.9%) 1,000 mls @ 150 mls/hr IV .Q6H40M [facility] Last Admin: 10/03/17 03:25 Dose: 150 mls/hr Insulin Aspart (Novolog) 0 unit SC ACHS [facility] PRN Reason: Protocol Last Admin: 10/03/17 12:11 Dose: 12 unit Insulin Aspart (Novolog) 22 unit SC AC [facility] Insulin Glargine (Lantus) 40 unit SC HS [facility] Lisinopril (Zestril) 2.5 mg PO DAILY [facility] Last Admin: 10/03/17 09:44 Dose: 2.5 mg Metformin HCl (Glucophage Xr) 500 mg PO DAILY [facility] Last Admin: 10/03/17 09:44 Dose: 500 mg Metoprolol Succinate (Toprol Xl) 50 mg PO DAILY [facility] Last Admin: 10/02/17 10:01 Dose: 50 mg Pantoprazole Sodium (Protonix Ec Tab) 40 mg PO DAILY [facility] Last Admin: 10/03/17 09:44 Dose: 40 mg Rosuvastatin Calcium (Crestor) 5 mg PO HS [facility] Last Admin: 10/02/17 21:32 Dose: 5 mg - Labs Labs: 10/03/17 06:50 10/03/17 06:50 - Constitutional Appears: Well, No Acute Distress - Head Exam Head Exam: ATRAUMATIC, NORMAL INSPECTION - Eye Exam Eye Exam: EOMI, Normal appearance - ENT Exam ENT Exam: Mucous Membranes Moist - Respiratory Exam Respiratory Exam: Clear to Ausculation Bilateral, NORMAL BREATHING PATTERN - Cardiovascular Exam Cardiovascular Exam: REGULAR RHYTHM, +S1, +S2 - GI/Abdominal Exam GI & Abdominal Exam: Soft, Normal Bowel Sounds. absent: Firm, Guarding, Rigid, Tenderness - Extremities Exam Extremities Exam: Normal Inspection. absent: Calf Tenderness, Pedal Edema - Neurological Exam Neurological Exam: Alert, Awake, Oriented x3 - Psychiatric Exam Psychiatric exam: Normal Affect - Skin Skin Exam: Normal Color Assessment and Plan (1) Uncontrolled diabetes mellitus Assessment & Plan: Endocrinology consult, Dr. 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 Duffy based on needed ISS Coverage) * Novolog 22 units SC AC (Daily adjustment as per Dr. Duffy based on needed ISS Coverage) * NS @ 150mls/hr * Metformin 500mg PO daily * Lisinopril 2.5 mg PO daily: Renal protective * Crestor 5mg PO HS (due to cardiovascular risk) * Hypoglycemia protocol Goal: To attain a regimen for blood glucose control Status: Acute (2) Leukocytosis Assessment & Plan: Resolved Afebrile and no bandemia On admission: 12.6 * Normalized * Continue to monitor Status: Acute (3) Hypertension Assessment & Plan: Continue home medications: * Metoprolol Succinate 50mg PO QD * Continue to monitor with Vital signs Q4H Status: Acute (4) Prophylactic measure Assessment & Plan: GI: Protonix 40mg PO daily DVT: Lovenox 30mg SC daily Heart healthy diet, low carbohydrate All plans and management as per Dr. Sultana Status: Acute <KayyErik H - Last Filed: 10/04/17 07:06> Objective - Vital Signs/Intake and Output Vital Signs (last 24 hours): Temp Pulse Resp BP Pulse Ox 98.2 F 92 H 20 157/84 H 98 10/04/17 00:46 10/04/17 00:46 10/04/17 00:46 10/04/17 00:46 10/04/17 00:46 Intake and Output: 10/04/17 10/04/17 06:59 18:59 Intake Total 1300 Balance 1300 - Medications Medications: Current Medications Dextrose (Dextrose 50% Inj) 0 ml IV STAT PRN; Protocol PRN Reason: Hypoglycemia Protocol Dextrose (Glutose 15) 0 gm PO ONCE PRN; Protocol PRN Reason: Hypoglycemia Protocol Enoxaparin Sodium (Lovenox) 30 mg SC DAILY [facility] Last Admin: 10/03/17 09:44 Dose: 30 mg Glucagon (Glucagen Diagnostic Kit) 0 mg IM STAT PRN; Protocol PRN Reason: Hypoglycemia Protocol Dextrose (Dextrose 5% In Water 1000 Ml) 1,000 mls @ 0 mls/hr IV .Q0M PRN; Protocol; Per Protocol PRN Reason: Hypoglycemia Protocol Sodium Chloride (Sodium Chloride 0.9%) 1,000 mls @ 150 mls/hr IV .Q6H40M [facility] Last Admin: 10/04/17 00:58 Dose: 150 mls/hr Insulin Aspart (Novolog) 0 unit SC ACHS [facility] PRN Reason: Protocol Last Admin: 10/03/17 21:42 Dose: Not Given Insulin Aspart (Novolog) 22 unit SC AC [facility] Last Admin: 10/03/17 16:30 Dose: 22 unit Insulin Glargine (Lantus) 40 unit SC HS [facility] Last Admin: 10/03/17 21:41 Dose: 40 units Lisinopril (Zestril) 2.5 mg PO DAILY [facility] Last Admin: 10/03/17 09:44 Dose: 2.5 mg Metformin HCl (Glucophage Xr) 500 mg PO DAILY [facility] Last Admin: 10/03/17 09:44 Dose: 500 mg Metoprolol Succinate (Toprol Xl) 50 mg PO DAILY [facility] Last Admin: 10/02/17 10:01 Dose: 50 mg Pantoprazole Sodium (Protonix Ec Tab) 40 mg PO DAILY [facility] Last Admin: 10/03/17 09:44 Dose: 40 mg Rosuvastatin Calcium (Crestor) 5 mg PO HS [facility] Last Admin: 10/03/17 21:40 Dose: 5 mg - Labs Labs: 10/03/17 06:50 10/03/17 06:50 Attending/Attestation - Attestation I have personally seen and examined this patient.: Yes I have fully participated in the care of the patient.: Yes I have reviewed all pertinent clinical information, including history, physical exam and plan: Yes Notes (Text): 10/04/17 07:06 Medical attending: Patient was seen and examined by me, agree with the above note by medical facilities section director. Recently the patient reported that he was doing well. He did not have any acute concerns or changes overnight. His blood sugars however are somewhat unstable and his highest number was greater than 400 his lowest numbers 160. Endocrinology has increase the Lantus dose to be 40 units at night, is also on 22 units of NovoLog insulin before meals and at bedtime. Otherwise his vital signs are stable, his initial elevated white blood cell count has also come down as well Thank you very much, Erik Sultana
--- NOTE | 2017-10-03 17:53 | PN ---
DATE: ENDOCRINOLOGY FOLLOW UP NOTE LOCATION: Room 370. SUBJECTIVE: This is a 51-year-old male with recent uncontrolled type 2 insulin-requiring diabetes who continues to have marked hyperglycemic acceleration despite a very heavy insulin regimen was given. His oral intake has improved and have occasional valuable portions as noted. His glycemic fluctuations remain elevated as noted today with glucose values ranging from 336 to 424 mg/dL. The latest chemistries showed a BUN of 15, sodium 131, potassium 4.1, chloride 102, CO2 19, glucose 407, and creatinine 0.8. So at this time, we will once again titrate his insulin regimen and increase the Novolog to 22 units subcu t.i.d. before meals, to start at dinner time today as ordered. We will also modify the basal insulin with Lantus to be given at the higher dose of 40 units subcu at bedtime daily, to start tonight. We will continue the low dose correction scale using NovoLog insulin as ordered to alleviate hypoglycemia and detailed orders have been given. We will obtain serial chemistries and supplement accordingly as needed. We will follow and advise accordingly. We will continue the IV hydration because of the persistent mild ketosis or metabolic acidosis as noted. So, we will keep the normal saline infusion as ordered. We will obtain serial chemistries and supplement accordingly as needed. We will follow. Essie Duffy MD
[2017-10-03] MEDS ORDERED: (Lantus) Insulin Glargine, Recombinant SC SCH (22:00)
[2017-10-04] MEDS: Sodium Chloride 0.9% 1,000 ML IV SCH ×3 (00:58→18:09)
[2017-10-04 08:09] LABS: BASO % 0.5 % (0.0-2.0); EOS # 1.1 K/uL (0.0-0.7); EOS % 13.7 % (0.0-4.0); HEMOGLOBIN 10.7 g/dL (12.0-18.0); LYMPH # 2.1 K/uL (1.0-4.3); LYMPH % 25.7 % (20.0-40.0); MEAN CELL VOLUME 90.7 fL (80.0-94.0); MEAN CORPUSCULAR HEMOGLOBIN 31.5 pg (27.0-31.0); MEAN CORPUSCULAR HGB CONC 34.7 g/dL (33.0-37.0); MEAN PLATELET VOLUME 10.4 fL (7.2-11.7); MONO # 0.6 K/uL (0.0-0.8); MONO % 6.7 % (0.0-10.0); NEUT # 4.4 K/uL (1.8-7.0); NEUT % 53.4 % (50.0-75.0); RBC 3.4 Mil/uL (4.40-5.90); RED CELL DISTRIBUTION WIDTH 12.9 % (11.5-14.5); WHITE BLOOD COUNT 8.3 K/uL (4.8-10.8)
[2017-10-04 08:19] LABS: ALB/GLOB RATIO 1.1 (1.0-2.1); ALT/SGPT 22 U/L (21-72); AST/SGOT 15 U/L (17-59); BLOOD UREA NITROGEN 12 mg/dL (9-20); CALCIUM 8.4 mg/dl (8.6-10.4); GFR AFRICAN-AMERICAN > 60; GFR NON-AFRICAN AMERICAN > 60
[2017-10-04] MEDS: (Novolog) Insulin Aspart, Recombinant 100 u/ml 10 ml vial SC SCH ×7 (08:44→21:47)
[2017-10-04] MEDS: Metoprolol Succinate 50 mg XL Tab PO SCH (10:58)
[2017-10-04] MEDS: Enoxaparin 30 mg Syringe SC SCH (10:59)
[2017-10-04] MEDS: Pantoprazole 40 mg EC Tab PO SCH (10:59)
--- NOTE | 2017-10-04 13:51 | CP.PCM.PN ---
<HarrellsMadeleine randolphevita E - Last Filed: 10/04/17 13:47> Subjective - Date & Time of Evaluation Date of Evaluation: 10/04/17 Time of Evaluation: 07:35 - Subjective Subjective: Medicine progress note ( Dr. Sultana's service) Patient was seen and examined at bedside. Patient reports that he is doing well. Patient denies nausea, vomiting, chest pain, palpitations, SOB, abdominal pain, diarrhea or constipation and polydispia. Objective - Vital Signs/Intake and Output Vital Signs (last 24 hours): Temp Pulse Resp BP Pulse Ox 97.7 F 78 20 133/79 97 10/04/17 07:34 10/04/17 07:34 10/04/17 07:34 10/04/17 07:34 10/04/17 07:34 Intake and Output: 10/04/17 10/04/17 06:59 18:59 Intake Total 1300 1440 Output Total 850 Balance 1300 590 - Medications Medications: Current Medications Dextrose (Dextrose 50% Inj) 0 ml IV STAT PRN; Protocol PRN Reason: Hypoglycemia Protocol Dextrose (Glutose 15) 0 gm PO ONCE PRN; Protocol PRN Reason: Hypoglycemia Protocol Enoxaparin Sodium (Lovenox) 30 mg SC DAILY [facility] Last Admin: 10/04/17 10:59 Dose: 30 mg Glucagon (Glucagen Diagnostic Kit) 0 mg IM STAT PRN; Protocol PRN Reason: Hypoglycemia Protocol Dextrose (Dextrose 5% In Water 1000 Ml) 1,000 mls @ 0 mls/hr IV .Q0M PRN; Protocol; Per Protocol PRN Reason: Hypoglycemia Protocol Sodium Chloride (Sodium Chloride 0.9%) 1,000 mls @ 150 mls/hr IV .Q6H40M [facility] Last Admin: 10/04/17 00:58 Dose: 150 mls/hr Insulin Aspart (Novolog) 0 unit SC ACHS [facility] PRN Reason: Protocol Last Admin: 10/04/17 12:06 Dose: 10 unit Insulin Aspart (Novolog) 22 unit SC AC [facility] Last Admin: 10/04/17 12:04 Dose: 22 unit Insulin Glargine (Lantus) 40 unit SC HS [facility] Last Admin: 10/03/17 21:41 Dose: 40 units Lisinopril (Zestril) 2.5 mg PO DAILY [facility] Last Admin: 10/04/17 10:58 Dose: 2.5 mg Metformin HCl (Glucophage Xr) 500 mg PO DAILY [facility] Last Admin: 10/04/17 10:58 Dose: 500 mg Metoprolol Succinate (Toprol Xl) 50 mg PO DAILY [facility] Last Admin: 10/04/17 10:58 Dose: 50 mg Pantoprazole Sodium (Protonix Ec Tab) 40 mg PO DAILY [facility] Last Admin: 10/04/17 10:59 Dose: 40 mg Rosuvastatin Calcium (Crestor) 5 mg PO HS [facility] Last Admin: 10/03/17 21:40 Dose: 5 mg - Labs Labs: 10/04/17 07:55 10/04/17 07:55 - Constitutional Appears: Well - Head Exam Head Exam: ATRAUMATIC, NORMAL INSPECTION - Eye Exam Eye Exam: EOMI, Normal appearance - ENT Exam ENT Exam: Mucous Membranes Moist - Respiratory Exam Respiratory Exam: Clear to Ausculation Bilateral, NORMAL BREATHING PATTERN. absent: Rhonchi, Wheezes, Respiratory Distress - Cardiovascular Exam Cardiovascular Exam: REGULAR RHYTHM, +S1, +S2. absent: Murmur - GI/Abdominal Exam GI & Abdominal Exam: Soft, Normal Bowel Sounds. absent: Distended, Firm, Guarding, Rigid, Tenderness - Extremities Exam Extremities Exam: Normal Inspection. absent: Calf Tenderness, Pedal Edema - Neurological Exam Neurological Exam: Alert, Awake, Oriented x3 - Psychiatric Exam Psychiatric exam: Normal Affect, Normal Mood - Skin Skin Exam: Normal Color Assessment and Plan (1) Uncontrolled diabetes mellitus Assessment & Plan: Endocrinology consult, Dr. Duffy----> Help appreciated health educator HgbA1C: 10.3 (10/01/17) Medications/Management: * Accuchecks * ISS- high dose * Lantus 40units SC HS ( Daily adjustment as per Dr. Duffy based on needed ISS Coverage) * Novolog 22 units SC AC (Daily adjustment as per Dr. Duffy based on needed ISS Coverage) * NS @ 150mls/hr * Metformin 500mg PO daily * Lisinopril 2.5 mg PO daily: Renal protective * Crestor 5mg PO HS (due to cardiovascular risk) * Hypoglycemia protocol Goal: To attain a regimen for blood glucose control Plans for discharge tomorrow, will reach to Dr. Duffy regarding anti-diabetic medications for discharge as patient is not able to properly give himself insulin as he is legally blind. Status: Acute (2) Leukocytosis Assessment & Plan: Resolved Afebrile and no bandemia On admission: 12.6 * Normalized * Will continue to monitor Status: Acute (3) Hypertension Assessment & Plan: Continue home medications: * Metoprolol Succinate 50mg PO QD * Continue to monitor with Vital signs Q4H Status: Acute (4) Prophylactic measure Assessment & Plan: GI: Protonix 40mg PO daily DVT: Lovenox 30mg SC daily Heart healthy diet, low carbohydrate Disposition: Plans for discharge tomorrow, will reach to Dr. Duffy regarding anti- diabetic medications for discharge as patient is not able to properly give himself insulin as he is legally blind. All plans and management as per Dr. Sultana Status: Acute <Erik Sultana H - Last Filed: 10/04/17 17:35> Objective - Vital Signs/Intake and Output Vital Signs (last 24 hours): Temp Pulse Resp BP Pulse Ox 97.8 F 89 20 130/84 97 10/04/17 16:07 10/04/17 16:07 10/04/17 16:07 10/04/17 16:07 10/04/17 16:07 Intake and Output: 10/04/17 10/04/17 06:59 18:59 Intake Total 1300 2040 Output Total 2350 Balance 1300 -310 - Medications Medications: Current Medications Dextrose (Dextrose 50% Inj) 0 ml IV STAT PRN; Protocol PRN Reason: Hypoglycemia Protocol Dextrose (Glutose 15) 0 gm PO ONCE PRN; Protocol PRN Reason: Hypoglycemia Protocol Enoxaparin Sodium (Lovenox) 30 mg SC DAILY [facility] Last Admin: 10/04/17 10:59 Dose: 30 mg Glucagon (Glucagen Diagnostic Kit) 0 mg IM STAT PRN; Protocol PRN Reason: Hypoglycemia Protocol Dextrose (Dextrose 5% In Water 1000 Ml) 1,000 mls @ 0 mls/hr IV .Q0M PRN; Protocol; Per Protocol PRN Reason: Hypoglycemia Protocol Sodium Chloride (Sodium Chloride 0.9%) 1,000 mls @ 150 mls/hr IV .Q6H40M [facility] Last Admin: 10/04/17 13:54 Dose: Not Given Insulin Aspart (Novolog) 0 unit SC ACHS [facility] PRN Reason: Protocol Last Admin: 10/04/17 12:06 Dose: 10 unit Insulin Aspart (Novolog) 30 unit SC AC [facility] Insulin Glargine (Lantus) 50 unit SC HS [facility] Lisinopril (Zestril) 2.5 mg PO DAILY [facility] Last Admin: 10/04/17 10:58 Dose: 2.5 mg Metformin HCl (Glucophage Xr) 500 mg PO DAILY [facility] Last Admin: 10/04/17 10:58 Dose: 500 mg Metoprolol Succinate (Toprol Xl) 50 mg PO DAILY [facility] Last Admin: 10/04/17 10:58 Dose: 50 mg Pantoprazole Sodium (Protonix Ec Tab) 40 mg PO DAILY [facility] Last Admin: 10/04/17 10:59 Dose: 40 mg Rosuvastatin Calcium (Crestor) 5 mg PO HS [facility] Last Admin: 10/03/17 21:40 Dose: 5 mg - Labs Labs: 10/04/17 07:55 10/04/17 07:55 Attending/Attestation - Attestation I have personally seen and examined this patient.: Yes I have fully participated in the care of the patient.: Yes I have reviewed all pertinent clinical information, including history, physical exam and plan: Yes Notes (Text): 10/04/17 17:35 Medical attending: Patient was seen and examined by me, agree with the above note by medical insurance coding specialist. The patient was not in any acute distress today. He was ambulating in the room and ambulating in the room. He reported feeling well and reported the polydipsia as well as polyuria were now gone. His accuchecks still do have higher numbers at times. I explained to the patient that probably will be discharged tommorow. Thank you very much, Erik Sultana
--- NOTE | 2017-10-04 20:07 | PN ---
LOCATION: Room 370. SUBJECTIVE: This is a 51-year-old male with recent uncontrolled type 2 insulin-requiring diabetes, was exhibiting tremendous increased insulin resistance despite the fact that insulin regimen was given. Hyperglycemic accelerations continue and persist with glucose values ranging from 356 to 387 mg/dL. It was 162 to 209 last night as noted. The latest chemistries show a BUN of 12, sodium 135, potassium 3.8, chloride 103, CO2 22, glucose 357, and creatinine 0.8. So, at this time we will once again titrate his insulin regimen and increase the NovoLog to 30 units subcu q.i.d before meals to start today as noted. We will also continue the low dose correction scale using NovoLog insulin as given to obviate hypoglycemia and detail of this will be noted. We will also titrate his basal insulin, Levemir to be given 50 units subcu at bedtime daily to start tonight. We will titrate incrementally as indicated to optimize metabolic control. We will obtain serial chemistries and supplement accordingly as needed. We will follow. Essie Duffy MD
[2017-10-04] MEDS ORDERED: (Lantus) Insulin Glargine, Recombinant SC SCH (22:00)
[2017-10-05] MEDS: Sodium Chloride 0.9% 1,000 ML IV SCH ×2 (01:18→07:55)
[2017-10-05 07:39] VITALS: BP 115/75; PULSE 92; TEMP 97.6; O2SAT 96
[2017-10-05] MEDS: (Novolog) Insulin Aspart, Recombinant 100 u/ml 10 ml vial SC SCH ×3 (08:19→11:41)
[2017-10-05 08:28] LABS: BASO # 0.1 K/uL (0.0-0.2); BASO % 0.7 % (0.0-2.0); EOS # 1.1 K/uL (0.0-0.7); EOS % 12.5 % (0.0-4.0); HEMOGLOBIN 11.3 g/dL (12.0-18.0); LYMPH # 2.1 K/uL (1.0-4.3); LYMPH % 22.9 % (20.0-40.0); MEAN CELL VOLUME 90.1 fL (80.0-94.0); MEAN CORPUSCULAR HEMOGLOBIN 31.8 pg (27.0-31.0); MEAN CORPUSCULAR HGB CONC 35.4 g/dL (33.0-37.0); MEAN PLATELET VOLUME 10.4 fL (7.2-11.7); MONO # 0.5 K/uL (0.0-0.8); NEUT # 5.3 K/uL (1.8-7.0); NEUT % 57.9 % (50.0-75.0); RBC 3.56 Mil/uL (4.40-5.90); RED CELL DISTRIBUTION WIDTH 13.5 % (11.5-14.5); WHITE BLOOD COUNT 9.1 K/uL (4.8-10.8)
[2017-10-05 09:03] LABS: ALBUMIN 3.3 g/dL (3.5-5.0); ALT/SGPT 26 U/L (21-72); AST/SGOT 15 U/L (17-59); CALCIUM 9.1 mg/dl (8.6-10.4); GFR AFRICAN-AMERICAN > 60; GFR NON-AFRICAN AMERICAN > 60
[2017-10-05 09:04] LABS: BLOOD UREA NITROGEN 12 mg/dL (9-20)
[2017-10-05] MEDS: Magnesium Sulfate 1 gm in D5W 1 GM/100 ML BAG IVPB SCH ×2 (10:26→10:57)
[2017-10-05] MEDS: Pantoprazole 40 mg EC Tab PO SCH (10:26)
[2017-10-05] MEDS: Enoxaparin 30 mg Syringe SC SCH (10:57)
[2017-10-05] MEDS: Metoprolol Succinate 50 mg XL Tab PO SCH (11:00)
--- NOTE | 2017-10-05 12:09 | CP.PCM.DIS ---
<Ranjith Meadows E - Last Filed: 10/05/17 12:20> Provider - Provider Date of Admission: 10/03/17 23:07 Attending physician: Gopal To MD Primary care physician: Non [facility] Provider Time Spent in preparation of Discharge (in minutes): 45 Diagnosis - Discharge Diagnosis (1) Uncontrolled diabetes mellitus Status: Chronic (2) Leukocytosis Status: Acute (3) Hypertension Status: Chronic (4) Prophylactic measure Status: Acute Hospital Course - Lab Results Lab Results: Most Recent Lab Values WBC 9.1 K/uL (4.8-10.8) 10/05/17 08:14 RBC 3.56 Mil/uL (4.40-5.90) L 10/05/17 08:14 Hgb 11.3 g/dL (12.0-18.0) L 10/05/17 08:14 Hct 32.1 % (35.0-51.0) L 10/05/17 08:14 MCV 90.1 fL (80.0-94.0) 10/05/17 08:14 MCH 31.8 pg (27.0-31.0) H 10/05/17 08:14 MCHC 35.4 g/dL (33.0-37.0) 10/05/17 08:14 RDW 13.5 % (11.5-14.5) 10/05/17 08:14 Plt Count 226 K/uL (130-400) 10/05/17 08:14 MPV 10.4 fL (7.2-11.7) 10/05/17 08:14 Neut % (Auto) 57.9 % (50.0-75.0) 10/05/17 08:14 Lymph % (Auto) 22.9 % (20.0-40.0) 10/05/17 08:14 Walker % (Auto) 6.0 % (0.0-10.0) 10/05/17 08:14 Eos % (Auto) 12.5 % (0.0-4.0) H 10/05/17 08:14 Baso % (Auto) 0.7 % (0.0-2.0) 10/05/17 08:14 Neut # (Auto) 5.3 K/uL (1.8-7.0) 10/05/17 08:14 Lymph # (Auto) 2.1 K/uL (1.0-4.3) 10/05/17 08:14 Walker # (Auto) 0.5 K/uL (0.0-0.8) 10/05/17 08:14 Eos # (Auto) 1.1 K/uL (0.0-0.7) H 10/05/17 08:14 Baso # (Auto) 0.1 K/uL (0.0-0.2) 10/05/17 08:14 Puncture Site Rr 09/30/17 23:51 pCO2 33 mm/Hg (35-45) L 09/30/17 23:51 pO2 91 mm/Hg (80-100) 09/30/17 23:51 HCO3 22.0 mmol/L (21-28) 09/30/17 23:51 ABG pH 7.40 (7.35-7.45) 09/30/17 23:51 ABG Total CO2 21.4 mmol/L (22-28) L 09/30/17 23:51 ABG O2 Saturation 98.7 % (95-98) H 09/30/17 23:51 ABG Base Excess -3.7 mmol/L (-2.0-3.0) L 09/30/17 23:51 ABG Hemoglobin 11.8 g/dL (11.7-17.4) 09/30/17 23:51 ABG Carboxyhemoglobin 1.9 % (0.5-1.5) H 09/30/17 23:51 POC ABG HHb (Measured) 1.3 % (0.0-5.0) 09/30/17 23:51 ABG Methemoglobin 1.5 % (0.0-3.0) 09/30/17 23:51 Drew Test Pos 09/30/17 23:51 A-a O2 Difference 17.0 mm/Hg 09/30/17 23:51 Respiratory Index 0.2 09/30/17 23:51 Hgb O2 Saturation 95.2 % (95.0-98.0) 09/30/17 23:51 Liter Flow 0 09/30/17 23:51 FiO2 21.0 % 09/30/17 23:51 Sodium 133 mmol/L (132-148) 10/05/17 08:14 Potassium 4.1 mmol/L (3.6-5.2) 10/05/17 08:14 Chloride 99 mmol/L (98-107) 10/05/17 08:14 Carbon Dioxide 23 mmol/L (22-30) 10/05/17 08:14 Anion Gap 15 (10-20) 10/05/17 08:14 BUN 12 mg/dL (9-20) 10/05/17 08:14 Creatinine 0.8 mg/dL (0.8-1.5) 10/05/17 08:14 Est GFR ( Amer) > 60 10/05/17 08:14 Est GFR (Non-Af Amer) > 60 10/05/17 08:14 POC Glucose (mg/dL) 379 mg/dL (65-110) H 10/05/17 11:09 Random Glucose 406 mg/dL (75-110) H* 10/05/17 08:14 Hemoglobin A1c 10.3 % (4.2-6.5) H D 10/01/17 07:40 Calcium 9.1 mg/dl (8.6-10.4) 10/05/17 08:14 Phosphorus 3.7 mg/dL (2.5-4.5) 10/05/17 08:14 Magnesium 1.5 mg/dL (1.6-2.3) L 10/05/17 08:14 Total Bilirubin 0.4 mg/dL (0.2-1.3) 10/05/17 08:14 AST 15 U/L (17-59) L 10/05/17 08:14 ALT 26 U/L (21-72) 10/05/17 08:14 Alkaline Phosphatase 81 U/L (38-126) 10/05/17 08:14 Troponin I < 0.0120 ng/mL (0.00-0.120) 09/30/17 22:42 Total Protein 6.5 g/dL (6.3-8.3) 10/05/17 08:14 Albumin 3.3 g/dL (3.5-5.0) L 10/05/17 08:14 Globulin 3.2 gm/dL (2.2-3.9) 10/05/17 08:14 Albumin/Globulin Ratio 1.0 (1.0-2.1) 10/05/17 08:14 Triglycerides 256 mg/dL (0-149) H D 10/03/17 06:50 Cholesterol 141 mg/dL (0-199) 10/03/17 06:50 LDL Cholesterol Direct 94 mg/dL (0-129) 10/03/17 06:50 HDL Cholesterol 22 mg/dL (30-70) L 10/03/17 06:50 Lipase 284 U/L (23-300) 09/30/17 22:42 Serum Ketones Small (NEGATIVE) 09/30/17 22:42 - Hospital Course Hospital Course: HPI ( As per admission): Mr Lee is a 51 year old male with a PMHx of uncontrolled diabetes, diabetic retinopathy with bilateral legal blindness, herniated lumbar disc, HTN , who presents to [facility] because of 2 days of increased thirst and urinary frequency. He also endorsed dizziness. He denies dysuria, focal defecits, N/V, fever/chills. This is his 4th or 5th admission for elevated sugar/DKA. Yesterday evening he checked his blood glucose and found it to be in the 600s. He stated that he hasn't been eating healthy the past few days and this might have contributed to the high glucose. He lives in [place], [place] and is visiting his brother in . He sees a PMD in [place] (Dr Cárdenas?) and last saw him last week. 1 month ago he was admitted in [facility] for urinary retention. Hospital Course: Patient was admitted with the diagnosis of uncontrolled diabetes. Assembler, Dr. Duffy was consulted, who continued to make appropriate diabetic medications regimen. Over the course of admission, patient's blood glucose improved intermittently. In addition, due to patient's condition of being legally blind, patient's anti-diabetic medications was reconciled by Dr. Duffy as per phone conversation in order to ensure that patient is complaint. Patient was also seen by conservation educator, Ciera sandoval over the course of admission. Patient remained stable over the course of admission with no acute issues/events. Patient was discharge with appropriate medications and instructions. This is a brief summary of events. For a complete course, please refer to the medical records. Discharge Exam - Head Exam Head Exam: ATRAUMATIC, NORMAL INSPECTION - Eye Exam Eye Exam: EOMI, Normal appearance - ENT Exam ENT Exam: Mucous Membranes Moist - Respiratory Exam Respiratory Exam: Clear to PA & Lateral, NORMAL BREATHING PATTERN. absent: Wheezes, Respiratory Distress - Cardiovascular Exam Cardiovascular Exam: REGULAR RHYTHM, +S1, +S2 - GI/Abdominal Exam GI & Abdominal Exam: Normal Bowel Sounds, Soft. absent: Distended, Firm, Guarding, Tenderness - Extremities Exam Extremities exam: normal inspection - Neurological Exam Neurological exam: Alert, Normal Gait, Oriented x3 - Skin Skin Exam: Normal Color Discharge Plan - Discharge Medications Prescriptions: Aspirin 81 mg PO DAILY 30 Days #30 tab.chew Atorvastatin [Lipitor] 10 mg PO DIN 30 Days #30 tab GlipiZIDE [Glucotrol] 10 mg PO BID 30 Days #60 tab Insulin Glargine,Hum.rec.anlog [Lantus Solostar] 50 unit SQ HS #1 insuln.pen Lisinopril [Zestril] 2.5 mg PO DAILY 30 Days #30 tab Metformin ER [Glucophage XR] 500 mg PO DAILY 30 Days #30 ter Metoprolol Succinate [Toprol XL] 50 mg PO DAILY 30 Days #30 tab SITagliptin [Januvia] 100 mg PO DAILY 30 Days #30 tab - Follow Up Plan Condition: FAIR Disposition: HOME/ ROUTINE Instructions: Sitagliptin, Smoking: Not Just Harmful to Your Lungs and Heart, Diabetic Retinopathy, Diabetes Diet , Diabetes Type 2 (DC), Quitting Smoking, Aspirin, Atorvastatin, Glipizide, Lisinopril, Metformin, Metoprolol, Insulin Glargine, Leukocytosis (DC) Additional Instructions: Please discharge patient home as he is medically stable Please resume all your home medications and some new medications: 1. Aspirin 81mg PO daily 2. Glipizide 10mg PO BID; Please take 1 tablet at breakfast time and dinner time 3. Lisinopril 2.5mg PO daily. 4. Lipitor 10mg PO HS 5. Lantus 50 units pen daily at dinner time 6. Januvia 100mg PO daily, please take at breakfast time 7. Metformin 500mg PO XR daily. Please take at breakfast time 8. Toprol XL 50mg PO daily, please take 1 tablet once daily Please follow up with your primary physician, Dr. Odette Mathew within one week of discharge Please obtain an endocrinology referral from your primary physician, Dr. Odette Mathew for close monitoring of blood glucose and better control Please continue to follow the dietary advice as instructed by the conservation educator, Ciera Sandoval Please always check your blood glucose before administering anti-diabetic medications Please continue your daily exercise Please return to the hospital if symptoms resume Please take care Referrals: Odette Mathew DO [Doctor Osteopathy] - Non [facility] Provider, [Primary Care Provider] - <Erik Sultana - Last Filed: 10/05/17 14:48> Provider - Provider Date of Admission: 10/03/17 23:07 Attending physician: Erik Sultana DO Primary care physician: Non [facility] Provider [facility] Course - Lab Results Lab Results: Most Recent Lab Values WBC 9.1 K/uL (4.8-10.8) 10/05/17 08:14 RBC 3.56 Mil/uL (4.40-5.90) L 10/05/17 08:14 Hgb 11.3 g/dL (12.0-18.0) L 10/05/17 08:14 Hct 32.1 % (35.0-51.0) L 10/05/17 08:14 MCV 90.1 fL (80.0-94.0) 10/05/17 08:14 MCH 31.8 pg (27.0-31.0) H 10/05/17 08:14 MCHC 35.4 g/dL (33.0-37.0) 10/05/17 08:14 RDW 13.5 % (11.5-14.5) 10/05/17 08:14 Plt Count 226 K/uL (130-400) 10/05/17 08:14 MPV 10.4 fL (7.2-11.7) 10/05/17 08:14 Neut % (Auto) 57.9 % (50.0-75.0) 10/05/17 08:14 Lymph % (Auto) 22.9 % (20.0-40.0) 10/05/17 08:14 Walker % (Auto) 6.0 % (0.0-10.0) 10/05/17 08:14 Eos % (Auto) 12.5 % (0.0-4.0) H 10/05/17 08:14 Baso % (Auto) 0.7 % (0.0-2.0) 10/05/17 08:14 Neut # (Auto) 5.3 K/uL (1.8-7.0) 10/05/17 08:14 Lymph # (Auto) 2.1 K/uL (1.0-4.3) 10/05/17 08:14 Walker # (Auto) 0.5 K/uL (0.0-0.8) 10/05/17 08:14 Eos # (Auto) 1.1 K/uL (0.0-0.7) H 10/05/17 08:14 Baso # (Auto) 0.1 K/uL (0.0-0.2) 10/05/17 08:14 Puncture Site Rr 09/30/17 23:51 pCO2 33 mm/Hg (35-45) L 09/30/17 23:51 pO2 91 mm/Hg (80-100) 09/30/17 23:51 HCO3 22.0 mmol/L (21-28) 09/30/17 23:51 ABG pH 7.40 (7.35-7.45) 09/30/17 23:51 ABG Total CO2 21.4 mmol/L (22-28) L 09/30/17 23:51 ABG O2 Saturation 98.7 % (95-98) H 09/30/17 23:51 ABG Base Excess -3.7 mmol/L (-2.0-3.0) L 09/30/17 23:51 ABG Hemoglobin 11.8 g/dL (11.7-17.4) 09/30/17 23:51 ABG Carboxyhemoglobin 1.9 % (0.5-1.5) H 09/30/17 23:51 POC ABG HHb (Measured) 1.3 % (0.0-5.0) 09/30/17 23:51 ABG Methemoglobin 1.5 % (0.0-3.0) 09/30/17 23:51 Drew Test Pos 09/30/17 23:51 A-a O2 Difference 17.0 mm/Hg 09/30/17 23:51 Respiratory Index 0.2 09/30/17 23:51 Hgb O2 Saturation 95.2 % (95.0-98.0) 09/30/17 23:51 Liter Flow 0 09/30/17 23:51 FiO2 21.0 % 09/30/17 23:51 Sodium 133 mmol/L (132-148) 10/05/17 08:14 Potassium 4.1 mmol/L (3.6-5.2) 10/05/17 08:14 Chloride 99 mmol/L (98-107) 10/05/17 08:14 Carbon Dioxide 23 mmol/L (22-30) 10/05/17 08:14 Anion Gap 15 (10-20) 10/05/17 08:14 BUN 12 mg/dL (9-20) 10/05/17 08:14 Creatinine 0.8 mg/dL (0.8-1.5) 10/05/17 08:14 Est GFR ( Amer) > 60 10/05/17 08:14 Est GFR (Non-Af Amer) > 60 10/05/17 08:14 POC Glucose (mg/dL) 379 mg/dL (65-110) H 10/05/17 11:09 Random Glucose 406 mg/dL (75-110) H* 10/05/17 08:14 Hemoglobin A1c 10.3 % (4.2-6.5) H D 10/01/17 07:40 Calcium 9.1 mg/dl (8.6-10.4) 10/05/17 08:14 Phosphorus 3.7 mg/dL (2.5-4.5) 10/05/17 08:14 Magnesium 1.5 mg/dL (1.6-2.3) L 10/05/17 08:14 Total Bilirubin 0.4 mg/dL (0.2-1.3) 10/05/17 08:14 AST 15 U/L (17-59) L 10/05/17 08:14 ALT 26 U/L (21-72) 10/05/17 08:14 Alkaline Phosphatase 81 U/L (38-126) 10/05/17 08:14 Troponin I < 0.0120 ng/mL (0.00-0.120) 09/30/17 22:42 Total Protein 6.5 g/dL (6.3-8.3) 10/05/17 08:14 Albumin 3.3 g/dL (3.5-5.0) L 10/05/17 08:14 Globulin 3.2 gm/dL (2.2-3.9) 10/05/17 08:14 Albumin/Globulin Ratio 1.0 (1.0-2.1) 10/05/17 08:14 Triglycerides 256 mg/dL (0-149) H D 10/03/17 06:50 Cholesterol 141 mg/dL (0-199) 10/03/17 06:50 LDL Cholesterol Direct 94 mg/dL (0-129) 10/03/17 06:50 HDL Cholesterol 22 mg/dL (30-70) L 10/03/17 06:50 Lipase 284 U/L (23-300) 09/30/17 22:42 Serum Ketones Small (NEGATIVE) 09/30/17 22:42 Attending/Attestation - Attestation I have personally seen and examined this patient.: Yes I have fully participated in the care of the patient.: Yes I have reviewed all pertinent clinical information, including history, physical exam and plan: Yes Notes (Text): 10/05/17 14:42 Medical attending: Patient was seen and examined by me. Agree with the above note by the resident The patient felt ready to go home today. He denied feeling polydypsia and polyuria. The patient's diabetic medication regimen was changed since he is blind and it would be difficult for him to take insulin multiple times a day The patient will be taking insulin long acting at night as well as Januvia, metformin and also the glyburide He explains to us he has a tailor helper that is really helping him with home medication adminstration thank you Erik Sultana
--- NOTE | 2017-10-05 18:22 | PN ---
LOCATION: Room 370. SUBJECTIVE: This is a 51-year-old male with recent uncontrolled type 2 insulin-requiring diabetes, now being followed closely for metabolic management. His glycemic levels are fluctuating but much improved at this time and the latest glucose levels are ranged from 176 to 186 mg/dL. The latest chemistries showed a BUN of 12, sodium 135, potassium 3.8, chloride 103, CO2 22, glucose 357, and creatinine 0.8. PLAN: So at this time, we will continue the same Lantus given at 50 units subcu at bedtime daily as ordered. However, because of his visual impairment and the patient is actually legally blind at this time with no extra help from home as he lives alone, then we will not be able to give the prandial insulin regiment as ordered. For patient's safety, we will prudently switch him now to oral hypoglycemic therapy given in combination with Januvia at 100 mg daily and metformin at 500 mg b.i.d. and glipizide given as 10 mg b.i.d. before meals as ordered. We will continue the low dose correction scale using NovoLog insulin as given. We will titrate incrementally as indicated to optimize metabolic control. We will follow and advise accordingly. Essie Duffy MD
== END 2017-10-05 13:48 | disposition home or self-care (01) | DRG 638 ==
LOC: C.ER 21:45 → SUPCPDRO 21:45 → C.3T 10-01 02:11 → OBSVTOIN 10-03 23:07
PROVIDERS: ADMIT Hospitalist; ATTEND Hospitalist
DX: E11.00 Type 2 diabetes mellitus with hyperosmolarity without nonketotic hyperglycemic-hyperosmolar coma (NKHHC) (principal); E87.1 Hypo-osmolality and hyponatremia; E11.42 Type 2 diabetes mellitus with diabetic polyneuropathy; E11.51 Type 2 diabetes mellitus with diabetic peripheral angiopathy without gangrene; E86.0 Dehydration; D72.829 Elevated white blood cell count, unspecified; E11.319 Type 2 diabetes mellitus with unspecified diabetic retinopathy without macular edema; E78.5 Hyperlipidemia, unspecified; I11.9 Hypertensive heart disease without heart failure; F12.90 Cannabis use, unspecified, uncomplicated; H54.8 Legal blindness, as defined in USA; Z79.4 Long term (current) use of insulin; Z87.891 Personal history of nicotine dependence